=== PATIENT | female | born 1950 | race Caucasian/White ===

== ENCOUNTER 2016-10-21 23:30 | Emergency (ER) | payer BC ==
[~2016-10-21 23:30] MED LIST: ALORA0.025 MG TD; LIBRAX PO; LORTAB 5 PO; MEVACOR40 MG PO; MIRALAXPKT PO; PRILOSEC OTC20 MG PO; STERAPDS12; TRILIPIX45 MG PO; ZYRTEC ALLGY10 MG PO
[2016-10-22 01:39] LABS: BASOPHILS 0.5 %; BASOPHILS ABSOLUTE 0.04 10/3/uL (0.0-0.16); EOSINOPHILS 5.3 %; EOSINOPHILS ABSOLUTE 0.44 10/3/uL (0.0-0.53); ER CBC TAT 0 Hrs 00 Mins; HEMATOCRIT 41.6 % (36.0-48.0); HEMOGLOBIN 14.1 g/dL (12.0-16.0); IMMATURE GRANULOCYTES 0.2 %; IMMATURE GRANULOCYTES ABSOLUTE 0.02 10/3/uL (0.0-0.11); LYMPHOCYTES ABSOLUTE 2.68 10/3/uL (0.67-4.30); MEAN CORPUS HGB CONC 33.9 g/dL (32.0-36.0); MEAN CORPUSCULAR HEMOGLOB 31.1 pg (26.0-34.0); MEAN CORPUSCULAR VOLUME 91.6 fL (80-100); MEAN PLATELET VOLUME 9.4 fL (9.2-13.0); MONOCYTES 7.5 %; MONOCYTES ABSOLUTE 0.63 10/3/uL (0.21-1.20); NEUTROPHILS 54.5 %; NEUTROPHILS ABSOLUTE 4.57 10/3/uL (2.02-8.40); PLATELET COUNT 259 10/3/uL (150-400); RBC DISTRIBUTION WIDTH 13.5 % (12.0-16.0); RED CELL COUNT 4.54 10/6/uL (4.0-5.6); WHITE BLOOD CELLS 8.4 10/3/uL (4.5-10.5)
[2016-10-22 01:40] LABS: MANUAL DIFF NO %
[2016-10-22 02:01] LABS: BUN (BLOOD UREA NITROGEN) 13 MG/DL (6-23); CALCIUM, SERUM 9.5 MG/DL (8.5-10.4); CHLORIDE, SERUM 108 MMOL/L (96-112); CO2 (CARBON DIOXIDE) 30 MMOL/L (24-34); CREATININE 0.92 MG/DL (0.55-1.02); GFR AFRICAN AMERICAN 76 ML/MIN (>=60); GFR NON AFRICAN AMERICAN 66 ML/MIN (>=60); GLUCOSE, SERUM 122 MG/DL (60-99); POTASSIUM, SERUM 4.1 MMOL/L (3.5-5.3); SODIUM, SERUM 144 MMOL/L (135-148)
[2016-11-14] MEDS ORDERED: VENTOLIN HFA INH (23:37)
[2016-11-14] MEDS ORDERED: SPIRIVA INH (23:38)
[2016-11-14] MEDS ORDERED: SYN.05 PO (23:38)
[2016-11-14] MEDS ORDERED: MEVACOR PO (23:39)
[2016-11-14] MEDS ORDERED: SYMBICORT 160/41 INH INH (23:39)
[2016-11-14] MEDS ORDERED: ALEVE220 MG PO (23:40)
[2016-11-14] MEDS ORDERED: NEXIUM20 M1 PO (23:40)
[2016-11-14] MEDS ORDERED: ASAB PO (23:40)
[2016-11-14] MEDS ORDERED: MIRALAX POWDER1 PKT PO (23:42)
[2016-11-14] MEDS ORDERED: CLARIT10 PO (23:42)
== END 2016-10-22 04:11 | disposition home or self-care (01) ==
LOC: ER 23:30
PROVIDERS: Specialist
DX: M54.2 Cervicalgia (principal); F17.200 Nicotine dependence, unspecified, uncomplicated; J44.9 Chronic obstructive pulmonary disease, unspecified; K21.9 Gastro-esophageal reflux disease without esophagitis; Z88.2 Allergy status to sulfonamides; Z88.1 Allergy status to other antibiotic agents; Z79.52 Long term (current) use of systemic steroids; Z79.891 Long term (current) use of opiate analgesic; Z79.899 Other long term (current) drug therapy
CPT/HCPCS: 70491; 80048; 84443; 85025; 99284; Q9967